=== PATIENT | male | born 2000 | race Caucasian/White ===

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

== ENCOUNTER 2020-01-05 17:23 | Inpatient (IN) | payer SELFPAY ==
--- NOTE | 2020-01-05 18:09 | ER Document Report ---
ED Medical Screen (RME) - General Chief Complaint: Facial Swelling Stated Complaint: FACIAL SWELLING Time Seen by Provider: 01/05/20 18:02 Mode of Arrival: Ambulatory Information source: Patient, Parent Notes: This 19-year-old male is emergency department with facial swelling with a large abscess to the right side of his submandibular area wrapping around which feels like Tristian's angina. He reports started having some pain to the right side about a week ago and the swelling started 2 days ago. Patient is having difficulty time opening his mouth wide. He denies fever vomiting diarrhea. Reports he did eat peanut butter with bread today. Patient has widespread dental decay. I have greeted and performed a rapid initial assessment of this patient. A comprehensive ED assessment and evaluation of the patient, analysis of test results and completion of the medical decision making process will be conducted by additional ED providers. TRAVEL OUTSIDE OF THE [place] IN LAST 30 DAYS: No - Related Data Allergies/Adverse Reactions: No Known Allergies Allergy (Verified 09/16/17 17:39) Past Medical History Renal/ Medical History: Denies: Hx Peritoneal Dialysis Physical Exam - Vital signs Vitals: Temp Pulse Resp BP Pulse Ox 97.4 F 89 18 113/69 100 01/05/20 17:28 01/05/20 17:28 01/05/20 17:28 01/05/20 17:28 01/05/20 17:28 Course - Vital Signs Vital signs: Temp Pulse Resp BP Pulse Ox 97.4 F 89 18 113/69 100 01/05/20 17:28 01/05/20 17:28 01/05/20 17:28 01/05/20 17:28 01/05/20 17:28
[2020-01-05 19:22] LABS: ABSOLUTE EOSINOPHILS # (AUTO) 0.3 10^3/uL (0.0-0.6); ABSOLUTE LYMPHOCYTES (AUTO) 2.4 10^3/uL (0.5-4.7); ABSOLUTE NEUT (AUTO) 7.5 10^3/uL (1.7-8.2); BASOPHILS % (AUTO) 0.2 % (0-2); EOSINOPHILS % (AUTO) 2.4 % (0-6); HEMATOCRIT 45.6 % (37.9-51.0); HEMOGLOBIN 15.4 g/dL (13.5-17.0); LYMPHOCYTES % (AUTO) 21.2 % (13-45); MEAN CORPUSCULAR HEMOGLOBIN 29.4 pg (27.0-33.4); MEAN CORPUSCULAR HGB CONC 33.7 g/dL (32.0-36.0); MEAN CORPUSCULAR VOLUME 87 fl (80-97); MONOCYTES % (AUTO) 8.7 % (3-13); PLATELET COUNT 361 10^3/uL (150-450); RED BLOOD COUNT 5.22 10^6/uL (4.35-5.55); SEGMENTED NEUTROPHILS % (AUTO) 67.5 % (42-78); TOTAL CELLS COUNTED % (AUTO) 100 %; WHITE BLOOD COUNT 11.2 10^3/uL (4.0-10.5)
--- NOTE | 2020-01-05 19:30 | RADIOLOGY REPORT (SQ) ---
EXAM DESCRIPTION: CT FACIAL AREA WITH COMPLETED DATE/TIME: 01/05/2020 7:12 pm REASON FOR STUDY: facial swelling abscess COMPARISON: None. TECHNIQUE: Post contrast images through the facial bones and orbits windowed for bone and soft tissu e. Additional coronal and sagittal reconstructed images reviewed. All images stored on PACS. All CT scanners at this facility use dose modulation, iterative reconstruction, and/or weight based d osing when appropriate to reduce radiation dose to as low as reasonably achievable (ALARA). [facility]: Dose Right [facility]: CareDose [facility]: Dose Right [facility]: Teradose 4D [facility]: [employer] CONTRAST TYPE AND DOSE: contrast/concentration: Isovue 350.00 mg/ml; Total Contrast Delivered: 50.0 ml; Total Saline Delivered: 50.0 ml RENAL FUNCTION: None required. The patient is less than 50 years old. RADIATION DOSE: . LIMITATIONS: None. FINDINGS: FACIAL BONES: No fracture or bone lesion. ORBITS: Intact. No fracture. Symmetric intact globes and retroorbital soft tissues. PARANASAL SINUSES: Clear. No significant mucosal thickening, mass or fluid. No nasal polyps. Maxilla ry sinus outlets are patent. SOFT TISSUES: There is a 3.1 x 1.6 x 2.6 cm rim enhancing irregular fluid collection just inferior to the body of the right mandible. Marked subcutaneous soft tissue edema is present throughout the low er face. INFERIOR BRAIN: Limited view. No acute findings. OTHER: There are numerous dental caries present. There is a abscess at the base of tooth number 30 t hat communicates with the large abscess described above. IMPRESSION: 3.1 cm abscess just inferior to the body of the right side of the mandible due to a comm unicating dental abscess at tooth number 30. TECHNICAL DOCUMENTATION: JOB ID: [id number] Quality ID # [id number]: Final reports with documentation of one or more dose reduction techniques (e.g., Au tomated exposure control, adjustment of the mA and/or kV according to patient size, use of iterative reconstruction technique) 2010 [employer]- All Rights Reserved Reading location - IP/workstation name: [email or web address]
[2020-01-05] MEDS ORDERED: AMPICILLIN SOD/SULBACTAM 3 GM VIAL IV ONE (19:40)
[2020-01-05] MEDS ORDERED: ONDANSETRON HCL INJ/PF 4 MG/2 ML SDV IV ONE ×2 (19:41→21:15)
[2020-01-05] MEDS ORDERED: FENTANYL CITRATE INJ/PF 100 MCG/2 ML AMPUL IV ONE ×2 (19:41→21:14)
[2020-01-05 19:43] LABS: ALBUMIN 4.7 g/dL (3.5-5.0); ALKALINE PHOSPHATASE 92 U/L (38-126); ANION GAP 10 (5-19); ASPARTATE AMINO TRANSFERASE 22 U/L (17-59); BILIRUBIN,DIRECT 0.1 mg/dL (0.0-0.4); BILIRUBIN,TOTAL 0.7 mg/dL (0.2-1.3); BLOOD UREA NITROGEN 9 mg/dL (7-20); CALCIUM 9.5 mg/dL (8.4-10.2); CARBON DIOXIDE 32 mmol/L (22-30); CHLORIDE 96 mmol/L (98-107); GLUCOSE 89 mg/dL (75-110); POTASSIUM 4.7 mmol/L (3.6-5.0); TOTAL PROTEIN 8.9 g/dL (6.3-8.2)
[2020-01-05] MEDS ORDERED: LIDOCAINE 4% CREAM 5 GM TUBE TP ONE (20:23)
--- NOTE | 2020-01-05 20:46 | ER Document Report ---
Entered by DECLAN CARDONA SCRIBE 01/05/201939 Acting as scribe for:GUILLERMINA GONZALEZ DO ED General - General Chief Complaint: Facial Swelling Stated Complaint: FACIAL SWELLING Time Seen by Provider: 01/05/20 18:02 Mode of Arrival: Ambulatory Information source: Patient Notes: 19-year-old male presents with father to the emergency department with right- sided facial swelling that began about a week ago but worsened 2 days prior to arrival. Patient explains that a week ago, he had a tooth ache. Patient's father states that they tried to call the dentist but was unable to reach the office to make an appointment. Patient reports no past skin abscess'. Patient states that pain is worse with eating and opening his mouth. Patient denies fever, vomiting and diarrhea. TRAVEL OUTSIDE OF THE [place] IN LAST 30 DAYS: No - Related Data Allergies/Adverse Reactions: No Known Allergies Allergy (Verified 09/16/17 17:39) Past Medical History - General Information source: Patient, Parent - Social History Smoking Status: Current Every Day Smoker Cigarette use (# per day): Yes Chew tobacco use (# tins/day): No Lives with: Family Family History: Reviewed & Not Pertinent Patient has suicidal ideation: No Patient has homicidal ideation: No - Medical History Medical History: Negative Surgical Hx: Negative Review of Systems - Review of Systems Constitutional: denies: Fever EENT: See HPI, Difficulty swallowing, Mouth swelling, Dental problem. denies: Throat swelling Cardiovascular: No symptoms reported Respiratory: No symptoms reported Gastrointestinal: See HPI. denies: Diarrhea, Vomiting Genitourinary: No symptoms reported Male Genitourinary: No symptoms reported Musculoskeletal: No symptoms reported Skin: No symptoms reported Hematologic/Lymphatic: No symptoms reported Neurological/Psychological: No symptoms reported -: Yes All other systems reviewed and negative Physical Exam - Vital signs Vitals: Temp Pulse Resp BP Pulse Ox 97.4 F 89 18 113/69 100 01/05/20 17:28 01/05/20 17:28 01/05/20 17:28 01/05/20 17:28 01/05/20 17:28 - Notes Notes: Physical Exam: General: Alert, appears uncomfortable. HEENT: PERRL. Extraocular movements intact. Oropharynx clear. Severe periodontal disease with decay and erosion of most lower teeth and some upper teeth. Pointed abscess anterior to the angular jaw. Area of induration near the area of abscess to the submental region down to mid neck, to base of cheek above jaw and to angular jaw on right. No effect to tongue or intraoral structures. Neck: Supple. Mild erythema on right side of neck. Mild tenderness to palpation. Respiratory: No respiratory distress. Clear and equal breath sounds bilaterally. Cardiovascular: Regular rate and rhythm. Abdominal: Normal Inspection. Non-tender. No distension. Normal Bowel Sounds. Back: No gross abnormalities. Extremities: Moves all four extremities. Upper extremities: Normal inspection. Normal ROM. Lower extremities: Normal inspection. No edema. Normal ROM. Neurological: Normal cognition. AAOx4. Normal speech. Psychological: Normal affect. Normal Mood. Skin: Warm. Dry. Normal color. Course - Re-evaluation Re-evalutation: 01/06/20 00:51 MDM The pt has facial cellulitis and an abcess arising from a molar with bad peridontal disease. The abcess was able to be drained easily and the ct shows no evidence of ludwigs angina. He has unilateral submental induration. Additionally there is no fever, chills and no tongue or palate involvement and the development of this infection has been insidious rather than rapid. He is nontoxic here and after speaking with Dr. Fitzgerald there will be an oral surgeon hydrogen plant operations manager here tomorrow to assist with this young man's treatment. - Vital Signs Vital signs: Temp Pulse Resp BP Pulse Ox 97.4 F 89 18 126/70 H 98 01/05/20 17:28 01/05/20 17:28 01/05/20 17:28 01/05/20 22:01 01/05/20 23:00 - Laboratory Result Diagrams: 01/05/20 18:42 01/05/20 18:42 Laboratory results interpreted by me: 01/05/20 01/05/20 18:42 18:42 WBC 11.2 H Chloride 96 L Carbon Dioxide 32 H Total Protein 8.9 H - Diagnostic Test Radiology reviewed: Reports reviewed Procedures - Incision and Drainage Right Face Time completed: 21:00 Type: Simple Blade size: 11 Incision Method: Incision made by scalpel - After amylee cream applied for 15 minutes the abcess was opened and Amount/type of drainage: 10 ml Notes: 01/05/20 21:34 After #11 blade about 10 ml duane pus has been expressed. He tolerated this well without any apparent complications and I have discussed with Dr. Fitzgerald who will see and admit. Discharge - Discharge Clinical Impression: Facial cellulitis, Dental caries Condition: Fair Disposition: ADMITTED INPATIENT Admitting Provider: Amilcar (Hospitalist) Unit Admitted: Medical Floor I personally performed the services described in the documentation, reviewed and edited the documentation which was dictated to the scribe in my presence, and it accurately records my words and actions.
[2020-01-05] MEDS ORDERED: IPRATROPIUM/ALBUTEROL 0.5-2.5 MG/3 ML AMPUL NEB PRN (21:33)
[2020-01-05] MEDS ORDERED: ACETAMINOPHEN 325 MG TABLET PO PRN (21:33)
[2020-01-05] MEDS ORDERED: MAG HYDROX/AL HYDROX/SIMETH SUSP 30 ML UDCUP PO PRN (21:33)
[2020-01-05] MEDS ORDERED: AMPICILLIN SOD/SULBACTAM 3 GM VIAL IV PRN (22:16)
[2020-01-05] MEDS: HEPARIN SOD (PORCINE) 5,000 UNIT/ML 1 ML VIAL SUBCUT SCH (23:10)
[2020-01-05] MEDS: NORMAL SALINE 1000 ML 1,000 ML IV PRN (23:11)
[2020-01-06] MEDS ORDERED: AMPICILLIN SOD/SULBACTAM 3 GM VIAL ONE (02:41)
[2020-01-06] MEDS: NORMAL SALINE 1000 ML 1,000 ML IV PRN ×2 (03:21→13:20)
[2020-01-06] MEDS: AMPICILLIN SODIUM/SULBACTAM NA 3 GM in NORMAL SALINE 100 ML IV SCH ×2 (03:21→09:17)
--- NOTE | 2020-01-06 04:46 | PDOC H&P ---
History of Present Illness Admission Date/PCP: 01/05/20 22:01 Patient complains of: Right lower jaw pain and swelling History of Present Illness: GUILLERMINA DRAKE is a 19 year old male with history of tobacco, cannabis dependence and poor dentition presents with 2 weeks of right jaw pain and swelling prompting evaluation the emergency department where CT reveals 3.1 cm abscess. Abscess is drained by emergency department provider. He is started on empiric antibiotics and referred to the hospitalist for admission for right facial cellulitis with draining abscess. He denies recent antibiotic use and is otherwise felt well. Past Medical History Medical History: None Psychiatric Medical History: Reports: Substance Abuse, Tobacco Dependency Past Surgical History Past Surgical History: Reports: None Social History Information Source: Patient, Relative, [facility] Records Lives with: Family Smoking Status: Current Every Day Smoker Cigarettes Packs Per Day: 1 Hx Recreational Drug Use: Yes Drugs: Marijuana - Advance Directive Resuscitation Status: Full Code Family History Family History: COPD, Hypertension Parental Family History Reviewed: Yes Children Family History Reviewed: Yes Sibling(s) Family History Reviewed.: Yes Medication/Allergy Allergies/Adverse Reactions: No Known Allergies Allergy (Verified 09/16/17 17:39) Review of Systems Constitutional: ABSENT: chills, fever(s), headache(s), weight gain, weight loss Eyes: ABSENT: visual disturbances Ears: ABSENT: hearing changes Cardiovascular: ABSENT: chest pain, dyspnea on exertion, edema, orthropnea, palpitations Respiratory: ABSENT: cough, hemoptysis Gastrointestinal: ABSENT: abdominal pain, constipation, diarrhea, hematemesis, hematochezia, nausea, vomiting Genitourinary: ABSENT: dysuria, hematuria Musculoskeletal: ABSENT: joint swelling Integumentary: ABSENT: rash, wounds Neurological: ABSENT: abnormal gait, abnormal speech, confusion, dizziness, foc al weakness, syncope Psychiatric: ABSENT: anxiety, depression, homidical ideation, suicidal ideation Endocrine: ABSENT: cold intolerance, heat intolerance, polydipsia, polyuria Hematologic/Lymphatic: ABSENT: easy bleeding, easy bruising Physical Exam Vital Signs: Temp Pulse Resp BP Pulse Ox 98.1 F 80 18 122/66 99 01/06/20 00:22 01/06/20 00:22 01/06/20 00:22 01/06/20 00:22 01/06/20 00:22 Intake & Output 01/04/20 01/05/2001/05/20 11:59 11:59 11:59 Intake Total 1000 Balance 1000 Weight 6.3 kg General appearance: PRESENT: cooperative, mild distress, well-developed, well- nourished Head exam: PRESENT: atraumatic, normocephalic Eye exam: PRESENT: conjunctiva pink, EOMI, PERRLA. ABSENT: scleral icterus Ear exam: PRESENT: normal external ear exam Mouth exam: PRESENT: moist, tongue midline Teeth exam: PRESENT: dental caries, dental tenderness, poor dentation, other Neck exam: PRESENT: tenderness, other - Submental pain and edema with purulent drainage. ABSENT: carotid bruit, JVD, lymphadenopathy, thyromegaly Respiratory exam: PRESENT: clear to auscultation myra. ABSENT: rales, rhonchi, wheezes Cardiovascular exam: PRESENT: RRR. ABSENT: diastolic murmur, rubs, systolic murmur Pulses: PRESENT: normal dorsalis pedis pul Vascular exam: PRESENT: normal capillary refill GI/Abdominal exam: PRESENT: normal bowel sounds, soft. ABSENT: distended, guarding, mass, organolmegaly, rebound, tenderness Rectal exam: PRESENT: deferred Extremities exam: PRESENT: full ROM. ABSENT: calf tenderness, clubbing, pedal edema Neurological exam: PRESENT: alert, awake, oriented to person, oriented to place, oriented to time, oriented to situation, CN II-XII grossly intact. ABSENT: motor sensory deficit Psychiatric exam: PRESENT: appropriate affect, normal mood. ABSENT: homicidal ideation, suicidal ideation Skin exam: PRESENT: dry, intact, warm. ABSENT: cyanosis, rash Results Laboratory Results: 01/05/20 18:42 01/05/20 18:42 01/05/20 01/05/20 01/05/20 18:42 18:42 20:13 WBC 11.2 H RBC 5.22 Hgb 15.4 Hct 45.6 MCV 87 MCH 29.4 MCHC 33.7 RDW 13.0 Plt Count 361 Seg Neutrophils % 67.5 Sodium 137.9 Potassium 4.7 Chloride 96 L Carbon Dioxide 32 H Anion Gap 10 BUN 9 Creatinine 0.59 Est GFR ( Amer) > 60 Glucose 89 Lactic Acid 1.1 Calcium 9.5 Total Bilirubin 0.7 AST 22 Alkaline Phosphatase 92 Total Protein 8.9 H Albumin 4.7 Impressions: Facial Bones CT 01/05/20 18:06 IMPRESSION: 3.1 cm abscess just inferior to the body of the right side of the mandible due to a communicating dental abscess at tooth number 30. Assessment and Plan - Diagnosis (1) Facial cellulitis Is this a current diagnosis for this admission?: Yes Plan: Complicated by draining dental abscess. Empiric antibiotics initiated, follow- up CBC, blood culture and consult from oral surgery. (2) Dental caries Is this a current diagnosis for this admission?: Yes Plan: Please see #1 (3) Cannabis abuse Is this a current diagnosis for this admission?: Yes Plan: Education (4) Tobacco abuse Is this a current diagnosis for this admission?: Yes Plan: Tobacco cessation counseling performed, nicotine replacement options discussed. - Time Time Spent with patient: 25-34 minutes - Inpatient Certification Medical Necessity: Need Close Monitoring Due to Risk of Patient Decompensation
[2020-01-06] MEDS: HEPARIN SOD (PORCINE) 5,000 UNIT/ML 1 ML VIAL SUBCUT SCH ×3 (05:06→22:09)
[2020-01-06 05:39] LABS: ABSOLUTE EOSINOPHILS # (AUTO) 0.2 10^3/uL (0.0-0.6); ABSOLUTE LYMPHOCYTES (AUTO) 2.4 10^3/uL (0.5-4.7); ABSOLUTE MONOCYTES (AUTO) 0.8 10^3/uL (0.1-1.4); ABSOLUTE NEUT (AUTO) 4.7 10^3/uL (1.7-8.2); BASOPHILS % (AUTO) 0.3 % (0-2); EOSINOPHILS % (AUTO) 3.1 % (0-6); HEMATOCRIT 37.5 % (37.9-51.0); HEMOGLOBIN 13.1 g/dL (13.5-17.0); LYMPHOCYTES % (AUTO) 29.3 % (13-45); MEAN CORPUSCULAR HEMOGLOBIN 29.8 pg (27.0-33.4); MEAN CORPUSCULAR HGB CONC 34.8 g/dL (32.0-36.0); MEAN CORPUSCULAR VOLUME 86 fl (80-97); MONOCYTES % (AUTO) 9.6 % (3-13); PLATELET COUNT 305 10^3/uL (150-450); RED BLOOD COUNT 4.38 10^6/uL (4.35-5.55); RED CELL DISTRIBUTION WIDTH 12.7 % (11.5-14.0); SEGMENTED NEUTROPHILS % (AUTO) 57.7 % (42-78); TOTAL CELLS COUNTED % (AUTO) 100 %; WHITE BLOOD COUNT 8.1 10^3/uL (4.0-10.5)
[2020-01-06 05:51] LABS: ANION GAP 11 (5-19); BLOOD UREA NITROGEN 9 mg/dL (7-20); CALCIUM 8.9 mg/dL (8.4-10.2); CARBON DIOXIDE 25 mmol/L (22-30); CHLORIDE 102 mmol/L (98-107); GLUCOSE 98 mg/dL (75-110); POTASSIUM 4.2 mmol/L (3.6-5.0)
[2020-01-06] MEDS: DOCUSATE SODIUM 100 MG CAPSULE PO SCH ×2 (10:00→17:15)
--- NOTE | 2020-01-06 13:11 | PDOC PROGRESS REPORT ---
Subjective Progress Note for:: 01/06/20 Subjective:: Patient still having some pain in the area. Denies any shortness of breath or trouble breathing. Denies any fever or chills at this time. States that he has not been to the dentist in quite some time. Denies ophthalmoplegia. Reason For Visit: DENTAL ABSCESS Physical Exam Vital Signs: Temp Pulse Resp BP Pulse Ox 98.4 F 82 12 119/59 L 98 01/06/20 07:30 01/06/20 09:45 01/06/20 09:45 01/06/20 07:30 01/06/20 09:45 Intake & Output 01/05/20 01/06/20 01/07/20 06:59 06:59 06:59 Intake Total 1100 100 Balance 1100 100 Weight 61.3 kg General appearance: PRESENT: no acute distress, cooperative Eye exam: PRESENT: periorbital swelling - On the right side, other - Right facial swelling. ABSENT: scleral icterus Ear exam: PRESENT: other - No ecchymosis or significant erythema in the right eye Throat exam: PRESENT: other - Significant swelling of the right jaw mild tenderness Neck exam: PRESENT: lymphadenopathy Respiratory exam: PRESENT: symmetrical, unlabored. ABSENT: accessory muscle use, retraction, tachypnea GI/Abdominal exam: PRESENT: soft. ABSENT: rebound, rigid, tenderness Neurological exam: PRESENT: alert, awake. ABSENT: aphasic Psychiatric exam: ABSENT: agitated, anxious Focused psych exam: ABSENT: pressured speech Skin exam: ABSENT: jaundice Results Laboratory Results: 01/06/20 05:10 01/06/20 05:10 01/05/20 01/05/20 01/05/20 18:42 18:42 20:13 WBC 11.2 H RBC 5.22 Hgb 15.4 Hct 45.6 MCV 87 MCH 29.4 MCHC 33.7 RDW 13.0 Plt Count 361 Seg Neutrophils % 67.5 Sodium 137.9 Potassium 4.7 Chloride 96 L Carbon Dioxide 32 H Anion Gap 10 BUN 9 Creatinine 0.59 Est GFR ( Amer) > 60 Glucose 89 Lactic Acid 1.1 Calcium 9.5 Total Bilirubin 0.7 AST 22 Alkaline Phosphatase 92 Total Protein 8.9 H Albumin 4.7 01/06/20 01/06/20 05:10 05:10 WBC 8.1 RBC 4.38 Hgb 13.1 L D Hct 37.5 L MCV 86 MCH 29.8 MCHC 34.8 RDW 12.7 Plt Count 305 Seg Neutrophils % 57.7 Sodium 138.0 Potassium 4.2 Chloride 102 Carbon Dioxide 25 Anion Gap 11 BUN 9 Creatinine 0.50 L Est GFR ( Amer) > 60 Glucose 98 Lactic Acid Calcium 8.9 Total Bilirubin AST Alkaline Phosphatase Total Protein Albumin Impressions: Facial Bones CT 01/05/20 18:06 IMPRESSION: 3.1 cm abscess just inferior to the body of the right side of the mandible due to a communicating dental abscess at tooth number 30. Assessment and Plan - Diagnosis (1) Preseptal cellulitis Is this a current diagnosis for this admission?: Yes Plan: Likely spread from submandibular abscess. Will place on clindamycin. Blood cultures obtained. (2) Submandibular abscess Is this a current diagnosis for this admission?: Yes Plan: CT showing 3.1 cm underneath his right mandibule. I&D done in the ER. Pain control with Toradol. Oral surgeon consulted. Continue clindamycin. (3) Tobacco abuse Is this a current diagnosis for this admission?: Yes Plan: Tobacco cessation counseling performed on admission. nicotine replacement options discussed on admission. - Time Time Spent with patient: 15-24 minutes
[2020-01-06] MEDS: CLINDAMYCIN 600 MG/D5W RTU 600 MG/50 ML RTUPB IV SCH ×2 (13:21→22:09)
[2020-01-06] MEDS ORDERED: NICOTINE 14 MG/24 HR PATCH.TD24 TD PRN (13:36)
--- NOTE | 2020-01-06 15:10 | PDOC PROGRESS REPORT ---
Subjective Progress Note for:: 01/06/20 Subjective:: Pt admitted through ER T-1 for dental abscess LR. He had extraoral I&D in ER. He states that he is feeling better today. Reason For Visit: DENTAL ABSCESS Physical Exam Vital Signs: Temp Pulse Resp BP Pulse Ox 98.5 F 80 18 107/50 L 99 01/06/20 11:33 01/06/20 11:33 01/06/20 11:33 01/06/20 11:33 01/06/20 11:33 Intake & Output 01/05/20 01/06/20 01/07/20 06:59 06:59 06:59 Intake Total 1100 3250 Balance 1100 3250 Weight 61.3 kg General appearance: PRESENT: no acute distress Eye exam: PRESENT: periorbital swelling - right side that is soft and non fluctuant Mouth exam: PRESENT: other - Multiple grosssly carious teeth. Mild firm right buccal/submandibular swelling. Bandage in place over I&D site with dime size area of drainage on gauze. Teeth exam: PRESENT: dental caries, poor dentation Throat exam: PRESENT: other - No palatal draping. Neck exam: PRESENT: full ROM Results Laboratory Results: 01/06/20 05:10 01/06/20 05:10 01/05/20 01/05/20 01/05/20 18:42 18:42 20:13 WBC 11.2 H RBC 5.22 Hgb 15.4 Hct 45.6 MCV 87 MCH 29.4 MCHC 33.7 RDW 13.0 Plt Count 361 Seg Neutrophils % 67.5 Sodium 137.9 Potassium 4.7 Chloride 96 L Carbon Dioxide 32 H Anion Gap 10 BUN 9 Creatinine 0.59 Est GFR ( Amer) > 60 Glucose 89 Lactic Acid 1.1 Calcium 9.5 Total Bilirubin 0.7 AST 22 Alkaline Phosphatase 92 Total Protein 8.9 H Albumin 4.7 01/06/20 01/06/20 05:10 05:10 WBC 8.1 RBC 4.38 Hgb 13.1 L D Hct 37.5 L MCV 86 MCH 29.8 MCHC 34.8 RDW 12.7 Plt Count 305 Seg Neutrophils % 57.7 Sodium 138.0 Potassium 4.2 Chloride 102 Carbon Dioxide 25 Anion Gap 11 BUN 9 Creatinine 0.50 L Est GFR ( Amer) > 60 Glucose 98 Lactic Acid Calcium 8.9 Total Bilirubin AST Alkaline Phosphatase Total Protein Albumin Impressions: Facial Bones CT 01/05/20 18:06 IMPRESSION: 3.1 cm abscess just inferior to the body of the right side of the mandible due to a communicating dental abscess at tooth number 30. Assessment & Plan - Diagnosis (1) Dental caries Is this a current diagnosis for this admission?: Yes (2) Submandibular abscess Is this a current diagnosis for this admission?: Yes - Plan Summary Plan Summary: I would recommend continuing clindamycin and adding decadron 8mg IVPB every 6 hours. If patient continues to improve could d/c tomorrow and have pt call my office [phone] for appointment. Would recommend d/c with clindamycin 300mg qid and medrol dose pack.
[2020-01-06] MEDS: DEXAMETHASONE SOD PHOS INJ 10 MG/1 ML VIAL IV SCH ×2 (17:45→23:35)
[2020-01-06] MEDS: KETOROLAC TROMETHAMINE INJ/PF 30 MG/1 ML SDV IV PRN (22:12)
[2020-01-07] MEDS: HEPARIN SOD (PORCINE) 5,000 UNIT/ML 1 ML VIAL SUBCUT SCH (05:16)
[2020-01-07] MEDS: DEXAMETHASONE SOD PHOS INJ 10 MG/1 ML VIAL IV SCH (05:18)
[2020-01-07] MEDS: KETOROLAC TROMETHAMINE INJ/PF 30 MG/1 ML SDV IV PRN (05:18)
[2020-01-07] MEDS: CLINDAMYCIN 600 MG/D5W RTU 600 MG/50 ML RTUPB IV SCH (05:20)
[2020-01-07 08:34] VITALS: BP 138/65
--- NOTE | 2020-01-07 11:20 | PDOC DISCHARGE SUMMARY ---
Impression - Admit/DC Date/PCP Admission Date/Primary Care Provider: 01/05/20 22:01 Discharge Date: 01/07/20 - Discharge Diagnosis (1) Preseptal cellulitis Is this a current diagnosis for this admission?: Yes (2) Submandibular abscess Is this a current diagnosis for this admission?: Yes (3) Tobacco abuse Is this a current diagnosis for this admission?: Yes (4) Dental caries Is this a current diagnosis for this admission?: Yes - Additional Information Resuscitation Status: Full Code Discharge Diet: Regular Discharge Activity: Activity As Tolerated Referrals: [facility] [Outside] (The [facility] is closed until further notice) SUE LARIOS DDS [ACTIVE STAFF] - Prescriptions: Clindamycin HCl 300 mg PO TID 12 Days capsule Methylprednisolone [Medrol Dosepack (4 mg/Tab) 21 Tab/Dosepak] 4 mg PO ASDIR PRN #21 tab.ds.pk PRN Reason: Ibuprofen [Motrin 400 mg Tablet] 400 mg PO Q8HP PRN #30 tablet PRN Reason: Home Medications: Clindamycin HCl 300 mg PO TID 12 Days capsule 01/07/20 Ibuprofen [Motrin 400 mg Tablet] 400 mg PO Q8HP PRN #30 tablet 01/07/20 Methylprednisolone [Medrol Dosepack (4 mg/Tab) 21 Tab/Dosepak] 4 mg PO ASDIR PRN #21 tab.ds.pk 01/07/20 History of Present Illiness History of Present Illness: GUILLERMINA DRAKE is a 19 year old male with history of tobacco, cannabis dependence and poor dentition presents with 2 weeks of right jaw pain and swelling prompting evaluation the emergency department where CT reveals 3.1 cm abscess. Abscess is drained by emergency department provider. He is started on empiric antibiotics and referred to the hospitalist for admission for right facial cellulitis with draining abscess. He denies recent antibiotic use and is otherwise felt well. Hospital Course Hospital Course: Patient was admitted to the hospital for treatment of submandibular abscess with resultant preseptal cellulitis. Submandibular abscess was noted on CT scan which measured the dimension of 3.1 cm. Patient was initially started on IV antibiotics. In the ER, an I&D was performed of the right jaw to drain the submandibular abscess. Blood cultures were obtained which have been negative at 1 day. Pain medication was given. Patient was evaluated by the oral surgeon Dr. Larios who recommended Decadron as well as clindamycin and for patient to be discharged on Medrol Dosepak and follow-up with him in the office. Today patient show some improvement of his facial cellulitis after being placed on IV clindamycin and Decadron. Patient is doing well and denies any shortness of breath. Patient is being discharged in stable conditions to follow-up with the oral surgeon in his clinic. He is to complete 12 more days of oral clindamycin to complete a total of 14 days of therapy. Physical Exam Vital Signs: Temp Pulse Resp BP Pulse Ox 97.6 F 76 16 138/65 H 100 01/07/20 07:41 01/07/20 07:41 01/07/20 07:41 01/07/20 07:41 01/07/20 07:41 Intake & Output 01/06/20 01/07/20 01/08/20 06:59 06:59 06:59 Intake Total 1100 4760 Balance 1100 4760 Weight 61.3 kg 59.4 kg General appearance: PRESENT: no acute distress, cooperative Eye exam: PRESENT: periorbital swelling, other - Swelling of right face improved from yesterday Neck exam: ABSENT: JVD Respiratory exam: PRESENT: unlabored. ABSENT: accessory muscle use, rhonchi, tachypnea Neurological exam: PRESENT: alert, awake Results Laboratory Results: WBC 8.1 10^3/uL (4.0-10.5) 01/06/20 05:10 RBC 4.38 10^6/uL (4.35-5.55) 01/06/20 05:10 Hgb 13.1 g/dL (13.5-17.0) L D 01/06/20 05:10 Hct 37.5 % (37.9-51.0) L 01/06/20 05:10 MCV 86 fl (80-97) 01/06/20 05:10 MCH 29.8 pg (27.0-33.4) 01/06/20 05:10 MCHC 34.8 g/dL (32.0-36.0) 01/06/20 05:10 RDW 12.7 % (11.5-14.0) 01/06/20 05:10 Plt Count 305 10^3/uL (150-450) 01/06/20 05:10 Lymph % (Auto) 29.3 % (13-45) 01/06/20 05:10 [place] % (Auto) 9.6 % (3-13) 01/06/20 05:10 Eos % (Auto) 3.1 % (0-6) 01/06/20 05:10 Baso % (Auto) 0.3 % (0-2) 01/06/20 05:10 Absolute Neuts (auto) 4.7 10^3/uL (1.7-8.2) 01/06/20 05:10 Absolute Lymphs (auto) 2.4 10^3/uL (0.5-4.7) 01/06/20 05:10 Absolute Monos (auto) 0.8 10^3/uL (0.1-1.4) 01/06/20 05:10 Absolute Eos (auto) 0.2 10^3/uL (0.0-0.6) 01/06/20 05:10 Absolute Basos (auto) 0.0 10^3/uL (0.0-0.2) 01/06/20 05:10 Seg Neutrophils % 57.7 % (42-78) 01/06/20 05:10 Sodium 138.0 mmol/L (137-145) 01/06/20 05:10 Potassium 4.2 mmol/L (3.6-5.0) 01/06/20 05:10 Chloride 102 mmol/L (98-107) 01/06/20 05:10 Carbon Dioxide 25 mmol/L (22-30) 01/06/20 05:10 Anion Gap 11 (5-19) 01/06/20 05:10 BUN 9 mg/dL (7-20) 01/06/20 05:10 Creatinine 0.50 mg/dL (0.52-1.25) L 01/06/20 05:10 Est GFR ( Amer) > 60 (>60) 01/06/20 05:10 Est GFR (MDRD) Non-Af > 60 (>60) 01/06/20 05:10 Glucose 98 mg/dL (75-110) 01/06/20 05:10 Lactic Acid 1.1 mmol/L (0.7-2.1) 01/05/20 20:13 Calcium 8.9 mg/dL (8.4-10.2) 01/06/20 05:10 Total Bilirubin 0.7 mg/dL (0.2-1.3) 01/05/20 18:42 Direct Bilirubin 0.1 mg/dL (0.0-0.4) 01/05/20 18:42 Neonat Total Bilirubin Not Reportable 01/05/20 18:42 Neonat Direct Bilirubin Not Reportable 01/05/20 18:42 Neonat Indirect Bili Not Reportable 01/05/20 18:42 AST 22 U/L (17-59) 01/05/20 18:42 ALT 10 U/L (<50) 01/05/20 18:42 Alkaline Phosphatase 92 U/L (38-126) 01/05/20 18:42 Total Protein 8.9 g/dL (6.3-8.2) H 01/05/20 18:42 Albumin 4.7 g/dL (3.5-5.0) 01/05/20 18:42 Impressions: Facial Bones CT 01/05/20 18:06 IMPRESSION: 3.1 cm abscess just inferior to the body of the right side of the mandible due to a communicating dental abscess at tooth number 30. Plan Time Spent: Less than 30 Minutes Stroke Is this a Stroke Patient?: No Acute Heart Failure - Is this a Heart Failure Patient?: No
--- NOTE | 2020-01-07 16:26 | Progress Note ---
Provider Note Provider Note: I was notified by patient's nurse that patient had left the hospital without notifying anybody and without waiting for proper discharge. Patient also has attempted to reach patient but has been unsuccessful as no response. I have also tried myself to call patient's number on file several times with no response. Upon calling phone number, it states that the [employer] number has restrictions that do not allow me to complete my call. Have called patient's prescriptions for clindamycin and Medrol Dosepak in to patient's pharmacy on file. No other contact on file to reach patient about picking up his medication.
== END 2020-01-07 09:30 | disposition left against medical advice (07) | DRG 158 ==
LOC: ER 17:23 → EH 22:01 → 4N 01-06 00:04
PROVIDERS: ADMIT Internal Medicine; ATTEND Internal Medicine
PROC: 0J913ZZ Drainage of Face Subcutaneous Tissue and Fascia, Percutaneous Approach (ICD-10-PCS; principal; 2020-01-05)
DX: K04.7 Periapical abscess without sinus (principal); L03.213 Periorbital cellulitis; K12.2 Cellulitis and abscess of mouth; F17.210 Nicotine dependence, cigarettes, uncomplicated; F12.10 Cannabis abuse, uncomplicated
CPT/HCPCS: 36415; 70487; 80048; 80053; 83605; 85025; 87040; 96365; 96375; 96376; 99284; J0295; J1100; J1644; J1885; J2405; J3010; J3490; J7030; J7050

== ENCOUNTER 2020-11-06 16:28 | Emergency (ER) | payer SELFPAY ==
[2020-11-06 17:16] LABS: ABSOLUTE BASOPHILS # (AUTO) 0.1 10^3/uL (0.0-0.2); ABSOLUTE EOSINOPHILS # (AUTO) 0.1 10^3/uL (0.0-0.6); ABSOLUTE LYMPHOCYTES (AUTO) 3.9 10^3/uL (0.5-4.7); ABSOLUTE MONOCYTES (AUTO) 1.4 10^3/uL (0.1-1.4); ABSOLUTE NEUT (AUTO) 9.8 10^3/uL (1.7-8.2); BASOPHILS % (AUTO) 0.6 % (0-2); EOSINOPHILS % (AUTO) 0.6 % (0-6); HEMOGLOBIN 13.3 g/dL (13.5-17.0); LYMPHOCYTES % (AUTO) 25.4 % (13-45); MEAN CORPUSCULAR HEMOGLOBIN 28.5 pg (27.0-33.4); MEAN CORPUSCULAR VOLUME 84 fl (80-97); MONOCYTES % (AUTO) 9.2 % (3-13); PLATELET COUNT 395 10^3/uL (150-450); RED BLOOD COUNT 4.65 10^6/uL (4.35-5.55); RED CELL DISTRIBUTION WIDTH 14.9 % (11.5-14.0); SEGMENTED NEUTROPHILS % (AUTO) 64.2 % (42-78); TOTAL CELLS COUNTED % (AUTO) 100 %; WHITE BLOOD COUNT 15.3 10^3/uL (4.0-10.5)
[2020-11-06 17:35] LABS: ALBUMIN 4.6 g/dL (3.5-5.0); ALKALINE PHOSPHATASE 104 U/L (38-126); ANION GAP 10 (5-19); ASPARTATE AMINO TRANSFERASE 34 U/L (17-59); BILIRUBIN,DIRECT 0.2 mg/dL (0.0-0.4); BILIRUBIN,TOTAL 0.6 mg/dL (0.2-1.3); BLOOD UREA NITROGEN 15 mg/dL (7-20); CALCIUM 9.6 mg/dL (8.4-10.2); CARBON DIOXIDE 29 mmol/L (22-30); CHLORIDE 104 mmol/L (98-107); GLUCOSE 80 mg/dL (75-110); POTASSIUM 4.5 mmol/L (3.6-5.0); TOTAL PROTEIN 8.9 g/dL (6.3-8.2)
[2020-11-06 17:48] LABS: ACETAMINOPHEN < 10 ug/mL (10-30); ALCOHOL < 10 mg/dL (NONE DETECTED); SALICYLATE < 1.0 mg/dL (2.0-20.0)
[2020-11-06] MEDS ORDERED: LORAZEPAM INJ 2 MG/1 ML VIAL IV ONE (17:53)
[2020-11-06] MEDS ORDERED: DIPHENHYDRAMINE HCL 50 MG/ML VIAL IV ONE (17:56)
--- NOTE | 2020-11-06 18:01 | ER Document Report ---
ED General - General TRAVEL OUTSIDE OF THE [place] 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 He presents now via EMS for evaluation of altered mental status. He reported to EMS team that he had been "snorting Adderall" this afternoon. He denies use of alcohol. He is oriented x3 but exhibiting significant choreoathetoid movements. He admits that he has been using crystal meth recently although he says he has not done this today. (TAWNY GRIGSBY) - Related Data Allergies/Adverse Reactions: No Known Allergies Allergy (Verified 09/16/17 17:39) Past Medical History - General Information source: Patient, [facility] Records - Social History Smoking Status: Current Some Day Smoker Frequency of alcohol use: None Drug Abuse: Methamphetamine Lives with: Alone Family History: COPD, Hypertension - Past Medical History Cardiac Medical History: Reports: None Renal/ Medical History: Denies: Hx Peritoneal Dialysis Past Surgical History: Reports: None <TAWNY GRIGSBY - Last Filed: 11/06/20 20:34> Review of Systems - Review of Systems -: Yes ROS unobtainable due to patient's medical condition <TAWNY GRIGSBY - Last Filed: 11/06/20 20:34> Physical Exam <TAWNY GRIGSBY - Last Filed: 11/06/20 20:34> - Vital signs Vitals: Temp Pulse Resp BP Pulse Ox 97.8 F 141 H 28 H 141/87 H 98 11/06/20 16:42 11/06/20 16:42 11/06/20 16:42 11/06/20 16:42 11/06/20 16:42 - Notes Notes: GENERAL: Slender male approximately stated age who appears to be intermittently hallucinating and demonstrating choreoathetoid movements. SKIN: Warm and dry. Extensive widespread needle tracks. Good turgor no rashes. HEAD: Normocephalic atraumatic. EYES: Pupils are mid position equal and sluggish. Patient exhibits nystagmus. Conjunctivae and sclerae clear. EARS: CANALS AND TMS CLEAR. NOSE: CLEAR. MOUTH: Extremely poor dentition. Moist mucosa. Good dentition. No stridor or edema. No drooling. NECK: Supple. No masses or thyromegaly. No adenopathy. Carotids 2+ without bruits. No JVD. BACK: Symmetrical without tenderness. CHEST: Respirations unlabored. Breath sounds clear and symmetrical. HEART: Tachycardic. Regular rhythm. No murmur gallop or rub. ABDOMEN: Soft nontender without masses, organomegaly or rebound. Bowel sounds normally active. No bruits. GENITALIA: Deferred. EXTREMITIES: No edema. No calf tenderness. Cap refill less than 1.5 seconds. Dorsalis pedis and posterior tibial pulses 3+ and symmetrical. NEUROLOGICAL: Speech is fluent but slightly halting. Patient exhibits diffuse choreoathetoid movements and is moving all 4 extremities symmetrically. PSYCHIATRIC: Anxious affect. Appears to be hallucinating intermittently. (TAWNY GRIGSBY) Course - Laboratory Results Result Diagrams: 11/06/20 16:55 11/06/20 16:55 <TAWNY GRIGSBY - Last Filed: 11/06/20 20:34> - Laboratory Results Result Diagrams: 11/06/20 16:55 11/06/20 16:55 <RONAL CHAVEZ - Last Filed: 11/07/20 10:54> - Laboratory Results Result Diagrams: 11/06/20 16:55 11/06/20 16:55 Critical Laboratory Results Reviewed: No Critical Results - Radiology Results Critical Radiology Results Reviewed: No Critical Results <ELVIA THAKKAR - Last Filed: 11/07/20 12:50> - Re-evaluation Re-evalutation: 11/06/20 20:34 Patient was given IV Ativan and this controlled his involuntary movements. He still has not given us a urine specimen. Rest of his labs are relatively unremarkable. His EKG was remarkable for sinus tachycardia. We have petition for IVC and he will undergo further evaluation on the behavioral service following medical clearance. (TAWNY GRIGSBY) - Vital Signs Vital signs: Temp Pulse Resp BP Pulse Ox 98.2 F 90 16 109/63 96 11/07/20 10:14 11/07/20 10:14 11/07/20 10:14 11/07/20 10:14 11/07/20 10:14 - Laboratory Results Laboratory Results Interpreted: 11/06/20 11/06/20 11/07/20 16:55 16:55 02:35 WBC 15.3 H Hgb 13.3 L RDW 14.9 H Absolute Neuts (auto) 9.8 H Total Protein 8.9 H Urine Protein 30 H Urine Ketones 20 H Salicylates < 1.0 L Acetaminophen < 10 L - EKG Interpretation by Me Additional EKG results interpreted by me: 11/06/20 20:36 Twelve-lead EKG reviewed by me contemporaneously: Indication for study: Altered mental status Rhythm: Sinus tachycardia Rate: 102 Intervals: Normal QRS axis: +[address]/T wave changes: None Comparison with prior tracing: None Left ventricular hypertrophy Interpretation: Sinus tachycardia and left ventricular hypertrophy (TAWNY GRIGSBY) 11/07/20 12:49 Twelve-lead EKG reviewed by ER supervising physician. Sinus tachycardia at 109. No ST segment changes, no STEMI. Sinus tachycardia. (ELVIA THAKKAR) Discharge <TAWNY GRIGSBY - Last Filed: 11/06/20 20:34> <RONAL CHAVEZ - Last Filed: 11/07/20 10:54> <ELVIA THAKKAR - Last Filed: 11/07/20 12:50> - Discharge Clinical Impression: Polysubstance abuse Condition: Stable Disposition: HOME, SELF-CARE Additional Instructions: You have been evaluated both medical and behavioral teams have been deemed appropriate for discharge. You are encouraged to refrain from using methamphetamines, Adderall, K2 or another street drug as this causes your sympt oms of hallucinations, delusions and paranoia. You are encouraged to follow-up with substance use treatment. [facility] can assist you with voluntary detox. You have been provided a local resource list of area providers including [facility], other detox facilities and mobile crisis contact information if you change your mind and would like assistance in sobriety. AMPHETAMINE / METHAMPHETAMINE ABUSE: Amphetamines are addicting stimulants. Amphetamines overstimulate the nervous system and give a false feeling of power and mastery. These drugs may be obtained as prescription pills for weight loss, narcolepsy, or attention-deficit disorder. More often they're bought as an illegal street drug, methamphetamine (crank, crystal, speed). Using amphetamines repeatedly can lead to serious medical problems including malnutrition, severe depression, and paranoia. It can take increasing amounts to feel good. Eventually, there will be a "burn out." When you go off amphetamines there is a period of depression that may last for weeks or even months. High doses of amphetamines can cause seizures, confusion, hallucinations, delusions, high blood pressure, muscle damage, heart damage, or sudden . Many times these deadly complications occur even with "normal" doses. Injection of amphetamines is risky for developing abscesses, endocarditis (heart infection), pneumonia, and AIDS. Withdrawal from amphetamines often causes anxiety, depression, and drug cravings. Some users become paranoid and psychotic. There may be cramps, nausea, and vomiting. Many treatment programs are available, but you must make the decision to q uit. Medication can be prescribed to control the symptoms of amphetamine toxicity (beta blockers or benzodiazepines). Withdrawal symptoms may require tranquilizers. FOLLOW-UP CARE: If you have been referred to a physician for follow-up care, call the physicians office for an appointment as you were instructed or within the next two days. If you experience worsening or a significant change in your symptoms, notify the physician immediately or return to the Emergency Department at any time for re-evaluation. Referrals: [facility] [Outside] - Follow up as needed TIANNA GTZ MD [COMMUNITY BASED STAFF] - Follow up as needed
--- NOTE | 2020-11-06 18:52 | PSYCHOLOGICAL NOTE ---
Psych Note - Psych Note Date seen by psych provider: 11/06/20 Time seen by psych provider: 17:14 Psych Note: Reason for Consult: possible overdose Consent permissions: father, Kendell Whitehead, [id number] Patient is a 20 year old male who was admitted to the ED via EMS and petitioned for IVC. At time of assessment, patient was demonstrating psychomotor agitation and unable to concentrate. He reported taking 15mg of Adderall and something OTC for headaches. When asked about substance use or detox treatment in the past, patient stated yes. When asked when and where he inquired, Are you specifically talking about opiates? Patient was unable to recall answers at this time. He reports no opiate use in 2 years and 12 days. He denies suicidal and homicidal ideation, plan, and intent. Reports he lives with his father, Kendell Whitehead. Collateral: [id number] and 1841 attempted to call patients father, Kendell Whitehead, however the [employer] number could not be completed as dialed. Unable to obtain a number for him at this time as patient is a poor historian. Patient was not alert and oriented to self, person, place, time or situation. He is a poor historian. He had poor concentration and focus during evaluation. Thought processes are disorganized. Patient does not engage appropriately. Clinical Presentation: under the influence Medication recommendations per [facility] contracted psychiatrist, Dr. Thaddeus ROMERO, are as follows: Thorazine 50mg q6prn, increase to 100mg if needed; Cogentin 1mf daily with Thorazine Impression\plan: Patient is recommended for continued overnight mental health observation. He was unable to fully participate in evaluation and will be re- evaluated tomorrow when he is alert and oriented. Dr. Farley was consulted to care management of this patient; attending physicians in agreement with maday mmendations and disposition.
--- NOTE | 2020-11-06 19:35 | EKG REPORT ---
SEVERITY:- ABNORMAL ECG - SINUS TACHYCARDIA JOSE, CONSIDER BIATRIAL ABNORMALITIES PROBABLE LEFT VENTRICULAR HYPERTROPHY : Confirmed by: Rebekah Bonilla MD 06-Nov-2020 19:34:57
[2020-11-07 03:10] LABS: APPEARANCE,URINE SLIGHTLY-CLOUDY; BILIRUBIN,URINE NEGATIVE (NEGATIVE); COLOR,URINE YELLOW; GLUCOSE, URINE NEGATIVE (NEGATIVE); KETONES,URINE 20 mg/dL (NEGATIVE); LEUKOCYTE ESTERASE,URINE NEGATIVE (NEGATIVE); NITRITE,URINE NEGATIVE (NEGATIVE); PROTEIN,URINE 30 mg/dL (NEGATIVE); URINE SPECIFIC GRAVITY 1.027; UROBILINOGEN,URINE NEGATIVE mg/dL (<2.0)
[2020-11-07 03:22] LABS: URINE BARBITURATES SCREEN NEGATIVE; URINE BENZODIAZEPINES SCREEN NEGATIVE; URINE COCAINE SCREEN NEGATIVE; URINE METHADONE SCREEN NEGATIVE; URINE PHENCYCLIDINE SCREEN NEGATIVE
[2020-11-07 03:25] LABS: URINE MARIJUANA (THC) SCREEN UNCONFIRMED POSITIVE
--- NOTE | 2020-11-07 11:46 | PSYCHOLOGICAL NOTE ---
Psych Note - Psych Note Date seen by psych provider: 11/07/20 Time seen by psych provider: 10:30 Psych Note: Reason for Consult:AMS Consent Permissions: None Provided Patient arrived to [facility] ED via EMS for altered mental status. Check in conducted with patient: Patient reports that he used Adderall and denies use of methamphetamines. Patient reports that he is not interested in detox and declines any assistance. Clinician provided psychoeducation on the dangers of substance abuse. Patient does confirm he will take resources in case he changes his mind. Patient denies any thoughts of wanting to harm himself or others. Clinical Presentation: Substance-induced psychosis IVC Criteria per [facility] 122C Dangerous to others Within the relevant past the individual No has inflicted or attempted to inflict or threatened to inflict serious bodily harm on another AND No that there is a reasonable probability that this conduct will be repeated as there is an absence of supervision or structure to prevent. OR No has acted in such a way as to create a substantial risk of serious bodily harm to another AND No that there is a reasonable probability that this conduct will be repeated as there is an absence of supervision or structure to prevent. OR No has engaged in extreme destruction of property AND NO that there is a reasonable probability that this conduct will be repeated as there is an absence of supervision or structure to prevent. Previous episodes of dangerousness to others, when applicable, may be considered when determining reasonable probability of future dangerous conduct. Clear, cogent, and convincing evidence that an individual has committed a homicide in the relevant past is prima facie evidence of dangerousness to others. Dangerous to self Within the relevant past the individual has done any of the following: acted in such a way as to show ALL of the following: No The individual would be unable without care, supervision, and the continued assistance of others not otherwise available, to exercise self- control, judgment, and discretion in the conduct of the individual's daily responsibilities and social relations or to satisfy the individual's need for nourishment, personal or medical care, prison, or self-protection and safety. AND No There is a reasonable probability of the individual suffering serious physical debilitation within the near future unless adequate treatment is given. A showing of behavior that is grossly irrational, of actions that the individual is unable to control, of behavior that is grossly inappropriate to the situation, or of other evidence of severely impaired insight and judgment shall create a prima facie inference that the individual is unable to care for himself or herself. Patient arrived under the influence of unknown substance; however, Patient was positive for amphetamines and reports he used Adderall. Patient is no longer under the influence. OR No has attempted suicide or threatened suicide AND No that there is a reasonable probability of suicide unless adequate treatment is given as there is an absence of supervision or structure to prevent suicide of patient who has made an attempt, serious gesture or threat. OR No has mutilated himself or herself or attempted to mutilate himself or herself AND No that there is a reasonable probability of serious self-mutilation unless adequate treatment is given as there is an absence of supervision or structure to prevent. NOTE: Previous episodes of dangerousness to self, when applicable, may be considered when determining reasonable probability of physical debilitation, suicide, or self-mutilation. Impression\plan: Patient is Recommended for rescind of 24 hour petition for evaluation and is cleared from acute psychiatric services; paperwork is signed and placed in patient's chart. Patient arrived under the influence of an unknown substance. Patient reports that he snorted Adderall. Patient is no longer under the influence and declines assistance with detox and sobriety. Psychoeducation was provided on sobriety and the dangers of substance abuse. He confirms he will take resources so he has them in case he changes his mind at a later time. Dr. Farley was consulted to care management of this patient; attending physician in agreement with recommendations and disposition.
--- NOTE | 2020-11-07 12:51 | ER Document Report ---
Doctor's Note Notes: 11/07/20 12:50 Patient's vital signs and previous labs, diagnostic images reviewed. Reviewed mental health notes, nurse's notes and previous providers notes. VSS. Pt is in no distress at this time. Denies any SI or HI. Patient has been medically and psychologically cleared. General: A&Ox3. Answers questions appropriately. Heart: RRR Lungs: CTAB Psych: Flat affect A/P: Continue monitoring and rec's per MH. Normal diet plan: Discharge home with family. Patient did accept resources
[2020-11-07 13:51] VITALS: BP 106/71
== END 2020-11-07 13:15 | disposition home or self-care (01) ==
LOC: ER 16:28
DX: F15.10 Other stimulant abuse, uncomplicated (principal); F17.200 Nicotine dependence, unspecified, uncomplicated; F11.11 Opioid abuse, in remission; I51.7 Cardiomegaly; R00.0 Tachycardia, unspecified
CPT/HCPCS: 93005; 99285; 96374; 96375; 36415; 80307 ×4; 85025; 80053; 81001; 93010; J1200; J2060